=== PATIENT | male | born 1950 | race Caucasian/White ===

== ENCOUNTER → 2016-11-17 | Outpatient (CLI) | payer OTHER ==
--- NOTE | 2016-11-17 13:36 | DIAGNOSTIC IMAGING REPORT ---
LEFT RIBS UNILATERAL WITH PA CHEST CLINICAL HISTORY: LEFT RIB PAIN pain COMPARISON STUDY: None FINDINGS: Negative study left ribs. Severe degenerative change left shoulder. No acute bony abnormality. No evidence of pneumothorax. IMPRESSION: 1. Negative left ribs. 2. Severe degenerative change left shoulder. 3. Negative chest Electronically signed by: Luis Alaniz M.D. 11/17/2016 1:34 PM
== END | disposition home or self-care (01) ==
LOC: C.RADPV 13:04
PROVIDERS: ATTEND Family Medicine
DX: R07.81 Pleurodynia (principal)

== ENCOUNTER 2019-05-01 17:49 | Inpatient (IN) ==
[2019-05-01] MEDS ORDERED: dilTIAZem HCl 5 MG/ML 5 ML VIAL IV STA ×2 (17:58→18:14)
[2019-05-01] MEDS ORDERED: dilTIAZem HCl 5 MG/ML 5 ML VIAL IV ONE (17:58)
[2019-05-01] MEDS ORDERED: SODIUM CHLORIDE 0.9% 1000ML 1,000 ML IV SCH (18:00)
[2019-05-01 18:07] LABS: Basophils # (auto) 0.04 K/uL (0-0.2); Basophils % (auto) 0.4 %; Eosinophils # (auto) 0.42 K/uL (0-0.5); Eosinophils % (auto) 4.4 %; Hematocrit (blood only) 42.7 % (42-52); Hemoglobin 14.8 g/dL (14.0-18.0); Immature Granulocytes # (auto) 0.01 K/uL (0.00-0.02); Immature Granulocytes % (auto) 0.1 %; Lymphocytes % (auto) 30.2 %; Mean Corpuscular Hgb Conc 34.7 g/dL (32-36); Mean Corpuscular Volume 93.2 fL (80-100); Mean Platelet Volume 9.8 fL (7.4-10.4); Monocytes # (auto) 0.83 K/uL (0.11-0.59); Monocytes % (auto) 8.7 %; Neutrophils # (auto) 5.39 K/uL (1.4-6.5); Neutrophils % (auto) 56.2 %; Platelet Count 286 K/uL (130-400); RDW Coefficient of Variation 12.9 % (11.5-14.5); RDW Standard Deviation 43.9 fL (36.4-46.3); Red Blood Count 4.58 M/uL (4.7-6.1); White Blood Count 9.59 K/uL (4.8-10.8)
[2019-05-01] MEDS ORDERED: dilTIAZem HCl 125 MG in DEXTROSE 5% 100 ML IV STA (18:13)
[2019-05-01 18:24] LABS: Albumin Level 3.4 gm/dl (3.4-5.0); BUN Creatinine Ratio 18.4 (10-20); Calcium 9.6 mg/dl (8.5-10.1); Creatinine Clr Calc Pharmacy 84.5 ml/min; Est GFR (African American) 89.2; Magnesium 2.5 mg/dl (1.8-2.4); Potassium 4.2 mmol/L (3.5-5.1)
[2019-05-01 18:35] LABS: Albumin Globulin Ratio 0.9 (0.9-2); Bilirubin,Total 0.3 mg/dl (0.2-1); Globulin 3.8 gm/dl (2.5-4.0); Total Protein 7.2 gm/dl (6.4-8.2)
--- NOTE | 2019-05-01 18:44 | XRay Report ---
XR chest 1V portable CLINICAL HISTORY: sob dyspnea COMPARISON STUDY: 11/17/2016 FINDINGS: The bones soft tissues and hemidiaphragms are normal. The cardiomediastinal silhouette is n ormal. The lungs are clear. The pulmonary vasculature is normal. IMPRESSION: Negative chest. The above report was generated using voice recognition software. It may contain grammatical, syntax or spelling errors. Electronically signed by: Luis Alaniz M.D. 05/01/2019 6:43 PM
[2019-05-01 19:10] LABS: Lyme Ab IgG w/WB Rflx Negative (Negative); Lyme Ab IgM w/WB Rflx Negative (Negative)
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
--- NOTE | 2019-05-01 20:34 | Emergency Department Note ---
Entered by Harjit Jimenez acting as a scribe for Derrick Hoff MD History of Present Illness General Chief complaint: Arrhythmia/Palpitations Time Seen by Provider: 05/01/19 17:49 Source: patient History of Present Illness Onset (ago): day(s) 2 Location: chest (heart) Pain Consistency: + other (persistent) Quality: + other (palpitations) Associated symptoms: + shortness of breath; no chest pain, no fever/chills, no headaches and no nausea/vomiting The patient is a 68 year old male who presents to the Emergency Room with complaints of persistent palpitations over at least 2 days. The patient was evaluated at his PCPs office and was found to have atrial a flutter with RVR, and he was sent to the ER. The patient reports that he feels like his heart is racing. He states that his symptoms are persistent but not constant. He notes that he is also somewhat short of breath with exertion. He denies chest pain, fevers, lightheadedness, nausea, vomiting, leg swelling/pain, headaches, joint pain, history of any heart problems, history of thyroid issues, or other medical problems. He states that he was evaluated 3 weeks ago for a tick bite and placed on a 7-day course of antibiotics. He denies having any symptoms consistent with Lyme but has a history of Lyme which was treated several years ago. Home Medications Home Medications Medication Instructions Recorded Confirmed Type aspirin 325 mg PO ONCE 05/01/19 05/01/19 History Allergies Allergy/AdvReac Type Severity Reaction Status Date / Time pollen extracts Allergy Intermediate SNEEZING, Verified 05/01/19 18:14 CONGESTION Past Med/Surg History Medical History Lyme disease Family History Other Family history non-contributory Social History Preferred Language: Gibraltarian Feels Safe at Home: Yes Smoking Status: Current some day smoker Review of Systems See HPI for pertinent positives & negatives. and A total of 10 systems reviewed and were otherwise negative Physical Exam Vital Signs Vital Signs - 24 hr 05/01/19 17:51 05/01/19 17:56 05/01/19 17:58 Temperature 36.7 C Temperature Source Oral Sepsis Recent Fever Within 48 Hours No Sepsis New/Unexplained Change in Mental Status No Sepsis Action Taken by Nursing No Action Required Pulse Rate 145 H 143 H Pulse Rate [Apical] Pulse Rate from SpO2 Sensor 142 H Pulse Rhythm Regular Pulse Rhythm [Apical] Pulse Strength Normal Pulse Strength [Apical] Respiratory Rate 16 Respiratory Effort / Characteristics Non-Labored Spontaneous Respiratory Depth Normal Respiratory Pattern Regular Blood Pressure 130/104 H 130/104 H Blood Pressure [Right Arm] Blood Pressure Mean 112 112 Blood Pressure Mean [Right Arm] Blood Pressure Position Sitting Blood Pressure Position [Right Arm] Pulse Oximetry 99 100 97 Oxygen Delivery Method Room Air Room Air 05/01/19 18:03 05/01/19 18:10 05/01/19 18:11 Temperature Temperature Source Sepsis Recent Fever Within 48 Hours Sepsis New/Unexplained Change in Mental Status Sepsis Action Taken by Nursing Pulse Rate 142 H 142 H 140 H Pulse Rate [Apical] Pulse Rate from SpO2 Sensor 142 H 141 H 141 H Pulse Rhythm Pulse Rhythm [Apical] Pulse Strength Pulse Strength [Apical] Respiratory Rate 15 17 12 Respiratory Effort / Characteristics Respiratory Depth Respiratory Pattern Blood Pressure 121/89 Blood Pressure [Right Arm] Blood Pressure Mean 99 Blood Pressure Mean [Right Arm] Blood Pressure Position Blood Pressure Position [Right Arm] Pulse Oximetry 100 100 100 Oxygen Delivery Method 05/01/19 18:20 05/01/19 18:30 05/01/19 18:31 Temperature Temperature Source Sepsis Recent Fever Within 48 Hours Sepsis New/Unexplained Change in Mental Status Sepsis Action Taken by Nursing Pulse Rate 140 H 140 H 140 H Pulse Rate [Apical] Pulse Rate from SpO2 Sensor 140 H 137 H 138 H Pulse Rhythm Pulse Rhythm [Apical] Pulse Strength Pulse Strength [Apical] Respiratory Rate 16 20 11 L Respiratory Effort / Characteristics Respiratory Depth Respiratory Pattern Blood Pressure 122/82 Blood Pressure [Right Arm] Blood Pressure Mean 95 Blood Pressure Mean [Right Arm] Blood Pressure Position Blood Pressure Position [Right Arm] Pulse Oximetry 98 98 99 Oxygen Delivery Method 05/01/19 18:40 05/01/19 18:45 05/01/19 18:50 Temperature Temperature Source Sepsis Recent Fever Within 48 Hours Sepsis New/Unexplained Change in Mental Status Sepsis Action Taken by Nursing Pulse Rate 140 H 142 H 143 H Pulse Rate [Apical] 140 H Pulse Rate from SpO2 Sensor 125 H 129 H 90 Pulse Rhythm Pulse Rhythm [Apical] Regular Pulse Strength Pulse Strength [Apical] Normal Respiratory Rate 24 13 10 L Respiratory Effort / Characteristics Non-Labored Spontaneous Respiratory Depth Normal Respiratory Pattern Regular Blood Pressure 112/88 Blood Pressure [Right Arm] 122/82 Blood Pressure Mean 96 Blood Pressure Mean [Right Arm] 95 Blood Pressure Position Blood Pressure Position [Right Arm] Sitting Pulse Oximetry 98 99 99 Oxygen Delivery Method Room Air 05/01/19 19:00 05/01/19 19:01 05/01/19 19:10 Temperature Temperature Source Sepsis Recent Fever Within 48 Hours Sepsis New/Unexplained Change in Mental Status Sepsis Action Taken by Nursing Pulse Rate 144 H 145 H 145 H Pulse Rate [Apical] Pulse Rate from SpO2 Sensor 82 93 H 126 H Pulse Rhythm Pulse Rhythm [Apical] Pulse Strength Pulse Strength [Apical] Respiratory Rate 15 11 L 24 Respiratory Effort / Characteristics Respiratory Depth Respiratory Pattern Blood Pressure 106/84 Blood Pressure [Right Arm] Blood Pressure Mean 91 Blood Pressure Mean [Right Arm] Blood Pressure Position Blood Pressure Position [Right Arm] Pulse Oximetry 96 98 94 Oxygen Delivery Method 05/01/19 19:15 05/01/19 19:20 05/01/19 19:22 Temperature Temperature Source Sepsis Recent Fever Within 48 Hours Sepsis New/Unexplained Change in Mental Status Sepsis Action Taken by Nursing Pulse Rate 144 H 146 H 146 H Pulse Rate [Apical] Pulse Rate from SpO2 Sensor 102 H 81 79 Pulse Rhythm Pulse Rhythm [Apical] Pulse Strength Pulse Strength [Apical] Respiratory Rate 5 L 8 L 10 L Respiratory Effort / Characteristics Respiratory Depth Respiratory Pattern Blood Pressure 109/96 108/85 Blood Pressure [Right Arm] Blood Pressure Mean 100 92 Blood Pressure Mean [Right Arm] Blood Pressure Position Blood Pressure Position [Right Arm] Pulse Oximetry 96 97 97 Oxygen Delivery Method 05/01/19 19:35 05/01/19 19:45 Temperature Temperature Source Sepsis Recent Fever Within 48 Hours Sepsis New/Unexplained Change in Mental Status Sepsis Action Taken by Nursing Pulse Rate 143 H 144 H Pulse Rate [Apical] Pulse Rate from SpO2 Sensor 127 H 88 Pulse Rhythm Pulse Rhythm [Apical] Pulse Strength Pulse Strength [Apical] Respiratory Rate 13 14 Respiratory Effort / Characteristics Respiratory Depth Respiratory Pattern Blood Pressure 122/83 111/79 Blood Pressure [Right Arm] Blood Pressure Mean 96 89 Blood Pressure Mean [Right Arm] Blood Pressure Position Blood Pressure Position [Right Arm] Pulse Oximetry 97 97 Oxygen Delivery Method Room Air Room Air Constitutional: Vital signs reviewed. Eyes: Pupils are equal round reactive to light. Conjunctiva are noninjected. ENT: Pharynx is clear without erythema or exudate. Mucous membranes are moist. Neck supple without meningeal signs. Respiratory: Clear to auscultation bilaterally. Breath sounds are equal bilaterally. Cardiovascular: Tachycardic rate at 145 bpm. Regular rhythm. No rubs or gallops. GI: Soft, nondistended and nontender. Bowel sounds are present. Musculoskeletal: No peripheral edema. No lower extremity tenderness. Integumentary: No cyanosis. Neurological: The patient is awake and alert. No focal deficits. Psychiatric: Normal affect. Course 175: The patient was evaluated in room B2. A complete history and physical examination were performed. 1812: I checked on the patient. He states that he may have had is symptoms for up to a week but is unsure, although he states that it has been at least 2 days. His heart rate is currently 142 bpm. He will be started on a Cardizem drip and will be given a repeat bolus. 183: Cardizem drip and bolus have been given. His heart rate is 139 now. He states that he doesnt take any magnesium supplements. 1847: The patient is not experiencing any current symptoms. His heart rate is still in the 140s on the Cardizem drip. His blood pressure is stable. 191: The patients blood pressure is still 142 bpm. 1950: Dr. Diego [facility] Hospitalist is evaluating the patient for hospitalization . Administered Medications Diltiazem HCl 125 mg/ Dextrose 125 mls @ 10 mls/hr IV .[id number] STA; Protocol Stop: 05/02/19 06:42 Last Titration: 05/01/19 19:23 Dose: 15 mg/hr, 15 mls/hr Documented by: [id number] Admin: 05/01/19 18:24 Dose: 10 mg/hr, 10 mls/hr Documented by: [id number] Cosigned by: [id number] Discontinued Medications Diltiazem HCl (Cardizem) Confirm Administered Dose 25 mg IV .STK-MED ONE Stop: 05/01/19 17:59 Last Admin: 05/01/19 18:00 Dose: Not Given Documented by: [id number] Diltiazem HCl (Cardizem) 10 mg IV NOW STA Stop: 05/01/19 17:59 Last Admin: 05/01/19 18:00 Dose: 10 mg Documented by: [id number] Cosigned by: [id number] Diltiazem HCl (Cardizem) 10 mg IV NOW STA Stop: 05/01/19 18:15 Last Admin: 05/01/19 18:24 Dose: 10 mg Documented by: [id number] Cosigned by: [id number] Sodium Chloride (Nss 1000ml) 1,000 mls @ 999 mls/hr IV .[id number] MELLISA Stop: 05/01/19 19:00 Last Infusion: 05/01/19 19:20 Dose: 0 mls/hr Documented by: [id number] Admin: 05/01/19 18:00 Dose: 999 mls/hr Documented by: [id number] Medical Decision Making Differential Diagnosis Differential diagnosis: electrolyte abnormalities, atrial flutter, metabolic derangement, HI, hyperthyroidism Medical Records Attestation: I reviewed the patient's medical records. I did perform a limited focused review of portions of the patient's old chart on the electronic medical record. The patient was seen prior to arrival in his PCPs office for palpitations and shortness of breath. He was found to have a heart rate of 147 bpm and was sent here by ambulance. Home Medications Current Medication List: was personally reviewed by me Laboratory Data Attestation: I reviewed the patient's lab results. Result diagrams: 05/01/19 17:55 05/01/19 17:55 Lab Results 05/01/19 05/01/19 05/01/19 Range/Units 17:55 17:55 17:55 WBC 9.59 (4.8-10.8) K/uL RBC 4.58 L (4.7-6.1) M/uL Hgb 14.8 (14.0-18.0) g/dL Hct 42.7 (42-52) % MCV 93.2 (80-100) fL MCH 32.3 (25-34) pg MCHC 34.7 (32-36) g/dL RDW Std Deviation 43.9 (36.4-46.3) fL RDW Coeff of [place] 12.9 (11.5-14.5) % Plt Count 286 (130-400) K/uL MPV 9.8 (7.4-10.4) fL Immature Gran % (Auto) 0.1 % Neut % (Auto) 56.2 % Lymph % (Auto) 30.2 % [place] % (Auto) 8.7 % Eos % (Auto) 4.4 % Baso % (Auto) 0.4 % Immature Gran # (Auto) 0.01 (0.00-0.02) K/uL Neut # (Auto) 5.39 (1.4-6.5) K/uL Lymph # (Auto) 2.90 (1.2-3.4) K/uL [place] # (Auto) 0.83 H (0.11-0.59) K/uL Eos # (Auto) 0.42 (0-0.5) K/uL Baso # (Auto) 0.04 (0-0.2) K/uL Sodium 141 (136-145) mmol/L Potassium 4.2 (3.5-5.1) mmol/L Chloride 107 (98-107) mmol/L Carbon Dioxide 28 (21-32) mmol/L Anion Gap 6.0 (3-11) BUN 18 (7-18) mg/dl Creatinine 1.00 (0.6-1.4) mg/dl Est Cr Clr Drug Dosing 84.5 ml/min Est GFR ( Amer) 89.2 Est GFR (Non-Af Amer) 77.0 BUN/Creatinine Ratio 18.4 (10-20) Glucose 87 (70-99) mg/dl Calcium 9.6 (8.5-10.1) mg/dl Magnesium 2.5 H (1.8-2.4) mg/dl Total Bilirubin 0.3 (0.2-1) mg/dl AST 18 (15-37) U/L ALT 27 (12-78) U/L Alkaline Phosphatase 108 (45-117) U/L POC Troponin I (0-0.045) ng/ml Total Protein 7.2 (6.4-8.2) gm/dl Albumin 3.4 (3.4-5.0) gm/dl Globulin 3.8 (2.5-4.0) gm/dl Albumin/Globulin Ratio 0.9 (0.9-2) TSH 2.650 (0.300-4.500) uIu/ml Lyme Disease IgG Ab Negative (Negative) Lyme Disease IgM Ab Negative (Negative) 05/01/19 Range/Units 18:00 WBC (4.8-10.8) K/uL RBC (4.7-6.1) M/uL Hgb (14.0-18.0) g/dL Hct (42-52) % MCV (80-100) fL MCH (25-34) pg MCHC (32-36) g/dL RDW Std Deviation (36.4-46.3) fL RDW Coeff of Marina (11.5-14.5) % Plt Count (130-400) K/uL MPV (7.4-10.4) fL Immature Gran % (Auto) % Neut % (Auto) % Lymph % (Auto) % [place] % (Auto) % Eos % (Auto) % Baso % (Auto) % Immature Gran # (Auto) (0.00-0.02) K/uL Neut # (Auto) (1.4-6.5) K/uL Lymph # (Auto) (1.2-3.4) K/uL [place] # (Auto) (0.11-0.59) K/uL Eos # (Auto) (0-0.5) K/uL Baso # (Auto) (0-0.2) K/uL Sodium (136-145) mmol/L Potassium (3.5-5.1) mmol/L Chloride (98-107) mmol/L Carbon Dioxide (21-32) mmol/L Anion Gap (3-11) BUN (7-18) mg/dl Creatinine (0.6-1.4) mg/dl Est Cr Clr Drug Dosing ml/min Est GFR ( Amer) Est GFR (Non-Af Amer) BUN/Creatinine Ratio (10-20) Glucose (70-99) mg/dl Calcium (8.5-10.1) mg/dl Magnesium (1.8-2.4) mg/dl Total Bilirubin (0.2-1) mg/dl AST (15-37) U/L ALT (12-78) U/L Alkaline Phosphatase (45-117) U/L POC Troponin I < 0.03 (0-0.045) ng/ml Total Protein (6.4-8.2) gm/dl Albumin (3.4-5.0) gm/dl Globulin (2.5-4.0) gm/dl Albumin/Globulin Ratio (0.9-2) TSH (0.300-4.500) uIu/ml Lyme Disease IgG Ab (Negative) Lyme Disease IgM Ab (Negative) Imaging Data Radiologist's Impression: Radiology results as stated below per my review and the radiologist's interpretation: XR chest 1V portable CLINICAL HISTORY: sob dyspnea COMPARISON STUDY: 11/17/2016 FINDINGS: The bones soft tissues and hemidiaphragms are normal. The cardiomediastinal silhouette is normal. The lungs are clear. The pulmonary vasculature is normal. IMPRESSION: Negative chest. The above report was generated using voice recognition software. It may contain grammatical, syntax or spelling errors. Electronically signed by: Luis Alaniz M.D. 05/01/2019 6:43 PM ECG Data Attestation: I personally reviewed and interpreted this ECG as follows: Indication: palpitations Rate (beats per minute): 146 Rhythm: atrial flutter Findings: + other (2:1 conduction) and + nonspecific-ST abn; no PVC Blood Pressure Blood Pressure Findings: Normal blood pressure Blood Pressure Disposition: did not require urgent referral MDM Narrative I did provide prehospital medical command for the patient. I did evaluate the patient as noted above. The patient is presenting with new onset atrial flutter with RVR. He does complain of some shortness of breath. The patient was placed on a continuous pvc monitor. I did order and personally review the patient's 12-lead EKG as described above. He has a flutter with 2-1 conduction and rapid genicular response. I did order and personally reviewed the images of the patient's chest x-ray as described above. Chest x-ray is unremarkable. I did order and review the patient's blood work as noted in the electronic medical record. His magnesium is slightly elevated. He denies magnesium supplementation. His labs are otherwise unremarkable. I did treat the patient with normal saline IV. He was also given boluses of Cardizem IV and placed on a continuous drip. I did reassess the patient multiple times. His heart rate did improve but remained elevated. I did recommend hospitalization and discussed case with the hospitalist and case management coordinator. Impression & Plan Atrial flutter with rapid ventricular response, New onset atrial flutter, Hypermagnesemia Critical Care Time Critical Care Time: Yes Total Critical Care Time: 35 I have personally spent 35 minutes of critical care time in the direct management of this patient. This includes bedside care, interpretation of diagnostic studies, and testing, discussion with consultants, patient, and family members, and other required patient management activities. This 35 minutes is in excess of all separately billable procedures. Discharge Plan Visit Data Chief Complaint: Arrhythmia/Palpitations ED Provider: Derrick Hoff Discharge Problem: Atrial flutter with rapid ventricular response, New onset atrial flutter, Hypermagnesemia Patient Disposition: Admitted As Inpatient Discharge Instructions Interventions: ED Discharge Assessment Last Done: 05/01/19 20:13 The kevenibe's documentation has been prepared under my direction and personally reviewed by me in its entirety. I confirm that the note above accurately reflects all work, treatment, procedures, and medical decision making performed by me.
[2019-05-01] MEDS ORDERED: dilTIAZem HCl 125 MG in DEXTROSE 5% 100 ML IV SCH (20:37)
[2019-05-01] MEDS ORDERED: ALUMINUM/MAGNESIUM SUSP 30 ML UDC PO PRN (20:37)
[2019-05-01] MEDS ORDERED: ONDANSETRON INJ 2 MG/ML 2 ML VIAL IV PRN (20:37)
[2019-05-01] MEDS ORDERED: MAGNESIUM HYDROXIDE SUSP 30 ML UDC PO PRN (20:37)
[2019-05-01] MEDS ORDERED: ACETAMINOPHEN 325 MG TAB PO PRN (20:37)
[2019-05-01] MEDS ORDERED: ZOLPIDEM TARTRATE 5 MG TAB PO PRN (20:37)
[2019-05-01] MEDS ORDERED: POLYETHYLENE (MIRALAX) 17 GM PACK PO PRN (20:37)
[2019-05-01 21:34] LABS: Partial Thromboplastin Time 26.1 Seconds (21.0-31.0); Prothrombin Time 10.5 Seconds (9.0-12.0)
[2019-05-01] MEDS ORDERED: D5W AND LACTATED RINGERS 1,000 ML IV SCH (22:59)
[2019-05-02] MEDS ORDERED: SODIUM CHLORIDE 0.9% 1000ML 500 ML IV ONE (00:06)
[2019-05-02] MEDS ORDERED: DIGOXIN 125 MCG in SYRINGE 9.5 ML IV STA (00:53)
[2019-05-02] MEDS: ENOXAPARIN 100 MG/1ML SYR SQ SCH ×3 (01:04→20:58)
[2019-05-02] MEDS: dilTIAZem HCl 125 MG in DEXTROSE 5% 100 ML IV SCH ×3 (03:27→17:52)
[2019-05-02] MEDS ORDERED: METOPROLOL TARTRATE 1 MG/ML VIAL IV STA (03:58)
[2019-05-02] MEDS ORDERED: METOPROLOL TARTRATE 1 MG/ML VIAL IV ONE (04:00)
[2019-05-02] MEDS: ASPIRIN 81 MG ECTAB PO SCH (07:42)
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
--- NOTE | 2019-05-02 11:55 | Hospitalist Progress Note ---
Date of Service May 02, 2019 Assessment & Plan (1) Atrial flutter: This pt is an active 68 y/o M without a significant medical history, presenting with a diagnosis of atrial flutter from his GP's office. He had short of breath with exertion for three days prior to his doctor visit. His wi fe also reports listening to his heart and noting that it seemed to be fast and irregular. He denies any CP. He did not discern any palpitations. Atrial flutter with a rate of 140 was confirmed on arrival to the ER. Initial labs were unremarkable. With tachy-sunny syndrome, usually sinus bradycardia in the past Remains in Aflutter with not much rate control on dilt gtt but BPs stable. -plan for ALY tomorrow to confirm no clot and then EP with ablation on -continue tele monitoring -continue Lovenox therapeutic dosing and then hold the AM of the EPS -continue dilt gtt and Cardio added po metoprolol today The pt's [id number] is 1. Will likely only need Eliquis x 1 month after his ablation and if no recurrence of Aflutter, will likely discontinue Eliquis after that -possiblity of needing a pacer in the future as per Cardio -Appreciate Cardio consultation -can eat today and then NPO after midnight tonight -follow lytes, CBC -f/u ECHO results when available Proph-Lovenox Dispo-remain on PCU Subjective Feels palpitations but otherwise feels fine. No lightheadedness, no CP or SOB. Making urine. I shungry. Discussed case with Cardiology Tele with Aflutter with rates variable from 90s-140s, with multiple 3-5 second pauses/blocks Review of Systems Review of Systems: All systems reviewed & are unremarkable except as noted in HPI & below Physical Exam Constitutional: WD/WN, vitals as above Eyes: PERRL, conjunctivae normal, anicteric sclerae ENMT: external ear and nose normal, oropharynx normal Neck: trachea midline, no thyromegaly Respiratory: normal respiratory effort, lungs clear to auscultation Cardiovascular: Rate/Rhythm: + tachycardic and + irregularly irregular Heart Sounds: no murmur Extremities: no calf tenderness and no edema Gastrointestinal (Abdomen): normal bowel sounds, soft, nontender, no hepatosplenomegaly Musculoskeletal: Extremities: extremities normal to inspection; no cyanosis and no clubbing Skin: no rashes, warm and dry Neurologic: moves all extremities and awake; no focal motor deficits Psychiatric: A+Ox3, euthymic affect Results & Data Vital Signs (Past 12 Hours) Vital Signs Temp Pulse Pulse Pulse Resp BP Pulse Ox 05/02/19 11:33 36.4 C L 68 18 98/65 L 97 05/02/19 08:00 136 H 05/02/19 07:23 36.6 C 57 L 18 96/65 L 95 05/02/19 05:32 128 H 05/02/19 04:44 116 H 05/02/19 04:43 136 H 05/02/19 02:56 36.5 C 138 H 19 99/70 L 95 05/02/19 01:30 129 H 05/02/19 01:05 95/48 L 05/02/19 01:04 140 H Laboratory Results 05/02/19 05/01/19 05/01/19 Range/Units 05:15 18:00 17:55 WBC (4.8-10.8) K/uL RBC (4.7-6.1) M/uL Hgb (14.0-18.0) g/dL Hct (42-52) % MCV (80-100) fL MCH (25-34) pg MCHC (32-36) g/dL RDW Std Deviation (36.4-46.3) fL RDW Coeff of Marina (11.5-14.5) % Plt Count (130-400) K/uL MPV (7.4-10.4) fL Immature Gran % (Auto) % Neut % (Auto) % Lymph % (Auto) % [facility] % (Auto) % Eos % (Auto) % Baso % (Auto) % Immature Gran # (Auto) (0.00-0.02) K/uL Neut # (Auto) (1.4-6.5) K/uL Lymph # (Auto) (1.2-3.4) K/uL [facility] # (Auto) (0.11-0.59) K/uL Eos # (Auto) (0-0.5) K/uL Baso # (Auto) (0-0.2) K/uL PT 10.5 (9.0-12.0) Seconds INR 1.0 (0.9-1.1) APTT 26.1 (21.0-31.0) Seconds PTT Ratio 1.0 Sodium (136-145) mmol/L Potassium (3.5-5.1) mmol/L Chloride (98-107) mmol/L Carbon Dioxide (21-32) mmol/L Anion Gap (3-11) BUN (7-18) mg/dl Creatinine (0.6-1.4) mg/dl Est Cr Clr Drug Dosing ml/min Est GFR ( Amer) Est GFR (Non-Af Amer) BUN/Creatinine Ratio (10-20) Glucose (70-99) mg/dl Calcium (8.5-10.1) mg/dl Magnesium (1.8-2.4) mg/dl Total Bilirubin (0.2-1) mg/dl AST (15-37) U/L ALT (12-78) U/L Alkaline Phosphatase (45-117) U/L POC Troponin I < 0.03 (0-0.045) ng/ml Total Protein (6.4-8.2) gm/dl Albumin (3.4-5.0) gm/dl Globulin (2.5-4.0) gm/dl Albumin/Globulin Ratio (0.9-2) TSH (0.300-4.500) uIu/ml Lyme Disease IgG Ab (Negative) Lyme Disease IgM Ab (Negative) Hepatitis C Ab Screen Neg (Neg) 05/01/19 05/01/19 05/01/19 Range/Units 17:55 17:55 17:55 WBC 9.59 (4.8-10.8) K/uL RBC 4.58 L (4.7-6.1) M/uL Hgb 14.8 (14.0-18.0) g/dL Hct 42.7 (42-52) % MCV 93.2 (80-100) fL MCH 32.3 (25-34) pg MCHC 34.7 (32-36) g/dL RDW Std Deviation 43.9 (36.4-46.3) fL RDW Coeff of Marina 12.9 (11.5-14.5) % Plt Count 286 (130-400) K/uL MPV 9.8 (7.4-10.4) fL Immature Gran % (Auto) 0.1 % Neut % (Auto) 56.2 % Lymph % (Auto) 30.2 % [facility] % (Auto) 8.7 % Eos % (Auto) 4.4 % Baso % (Auto) 0.4 % Immature Gran # (Auto) 0.01 (0.00-0.02) K/uL Neut # (Auto) 5.39 (1.4-6.5) K/uL Lymph # (Auto) 2.90 (1.2-3.4) K/uL [facility] # (Auto) 0.83 H (0.11-0.59) K/uL Eos # (Auto) 0.42 (0-0.5) K/uL Baso # (Auto) 0.04 (0-0.2) K/uL PT (9.0-12.0) Seconds INR (0.9-1.1) APTT (21.0-31.0) Seconds PTT Ratio Sodium 141 (136-145) mmol/L Potassium 4.2 (3.5-5.1) mmol/L Chloride 107 (98-107) mmol/L Carbon Dioxide 28 (21-32) mmol/L Anion Gap 6.0 (3-11) BUN 18 (7-18) mg/dl Creatinine 1.00 (0.6-1.4) mg/dl Est Cr Clr Drug Dosing 84.5 ml/min Est GFR ( Amer) 89.2 Est GFR (Non-Af Amer) 77.0 BUN/Creatinine Ratio 18.4 (10-20) Glucose 87 (70-99) mg/dl Calcium 9.6 (8.5-10.1) mg/dl Magnesium 2.5 H (1.8-2.4) mg/dl Total Bilirubin 0.3 (0.2-1) mg/dl AST 18 (15-37) U/L ALT 27 (12-78) U/L Alkaline Phosphatase 108 (45-117) U/L POC Troponin I (0-0.045) ng/ml Total Protein 7.2 (6.4-8.2) gm/dl Albumin 3.4 (3.4-5.0) gm/dl Globulin 3.8 (2.5-4.0) gm/dl Albumin/Globulin Ratio 0.9 (0.9-2) TSH 2.650 (0.300-4.500) uIu/ml Lyme Disease IgG Ab Negative (Negative) Lyme Disease IgM Ab Negative (Negative) Hepatitis C Ab Screen (Neg) PG Care Time/CCT Total # of Minutes Spent Total Time Spent with Patient: Total time spent is greater than 50% in coordination of care (as documented) at patient's floor/unit and/or counseling patient:
[2019-05-02] MEDS: METOPROLOL TARTRATE 25 MG TAB PO SCH ×2 (13:17→20:58)
--- NOTE | 2019-05-02 19:04 | Cardiology Consultation ---
Date of Consultation May 02, 2019 Assessment & Plan (1) Atrial flutter with rapid ventricular response: The patient has what appears to be a typical isthmus dependent right atrial flutter. This is perhaps related to his history of sleep apnea. He is known to have an element of ectopy at baseline and in the setting of bradycardia, ectopy and perhaps some changes and right atrial anatomy he has developed atrial flutter. It does not appear to be any other proximate cause for his arrhythmia. The duration of the flutter is unknown. He may have had it longer than even a few days. He began to have symptoms recently which may have coincided with reduced LV function as discovered on echocardiography. I agree with the treatment plan outlined by Xavier Levine PA-C. I think we can perform a transesophageal echocardiogram tomorrow in the absence of left atrial appendage thrombus proceed with catheter based therapy for what appears to be a typical right atrial flutter. It is unclear if he is having any real benefit from the diltiazem or metoprolol. He seems to be tolerating the high rates well despite poor LV function. It will be reasonable discontinue this medication in order to avoid hypotension or significant pauses. (2) Tachy-sunny syndrome: He has long history of fairly significant bradycardia. However, this is sinus bradycardia and he has not had symptoms associated with low heart rates. In fact, he is a very active individual. I do not think he would do well with a rate control strategy for atrial flutter. He is already having some pauses on telemetry while in atrial flutter. I think catheter based therapy is the safest option as we could treat any form of bradycardia subsequent to conversion while he is in the lab. I do not suspect he will need a pacemaker in the immediate term as prior to developing the arrhythmia did not appear to be symptomatic. History of Present Illness Reason for Consultation: Atrial flutter Requesting Physician: Abner Attending Physician: Gabrielle Pearson MD History of Present Illness The patient is 60-year-old gentleman without a known history of cardiac disease who was recently diagnosed with atrial flutter. It seems that the patient had a vague sense of a higher heart rate for several days but was noticed by his girlfriend to have a rapid pulse upon as occult a greer. Patient was not feeling poorly at the time but over the next couple of days did start to experience some exercise intolerance and dyspnea with exertion. Based on the symptoms and a persistently high heart rate he was evaluated in the emergency room and had evidence of atrial flutter and associated high ventricular rates. He did not report any orthopnea at nighttime. He has not noticed any lower extremity edema. He did not report any associated chest pain with this arrhythmia. He has not had dizziness or lightheadedness. He cannot recall suffering syncopal episode. Prior to these events the patient is a very active individual. He did not report any limiting symptoms associated with activity. He has not had exertional chest pain or dyspnea. He reportedly has a diagnosis of sleep apnea. Allergies Allergy/AdvReac Type Severity Reaction Status Date / Time pollen extracts Allergy Intermediate SNEEZING, Verified 05/01/19 18:14 CONGESTION Home Medications Home Medications Medication Instructions Recorded Confirmed Type aspirin 325 mg PO ONCE 05/01/19 05/01/19 History Patient History Medical History Lyme disease Family History Other Family history non-contributory Social History Preferred Language: Slovak Communication Ability: Effective Beliefs That Will Affect Care: None Current Living Situation: Alone Feels Safe at Home: Yes Smoking Status: Never smoker Second Hand Exposure: No Hx Alcohol Use: No Hx Substance Use: No Review of Systems Review of Systems: All systems reviewed & are unremarkable except as noted in HPI & below Physical Exam Physical Exam: The patient is alert and oriented. Mood and affect appeared normal. He answered all questions appropriately. HEENT: Pupils are equal and reactive to light and accommodation. Extraocular movements are intact. The sclerae are anicteric. Neuro: Cranial nerves intact Neck: Patient's neck is supple. He has palpable carotid pulses bilaterally without bruits on auscultation. There is no evidence of jugular venous distention. The thyroid is not enlarged. Lungs: Clear to auscultation bilaterally. He has good air movement without use of accessory muscles. No rales wheezes or rhonchi. Cardiac: Heart demonstrates a irregular rhythm and tachycardia Normal S1 and S2. No murmurs on examination. Pulses: The patient has palpable radial pulses bilaterally that are equal in intensity Extremities: There was no evidence of hypoperfusion. There is no cyanosis or clubbing. There is no edema. Skin: I did not appreciate any rashes on examination today. Results & Data Vital Signs (Past 12 Hours) Vital Signs Temp Pulse Pulse Resp BP Pulse Ox 05/02/19 16:00 98 H 05/02/19 15:52 36.6 C 75 17 96/54 L 95 05/02/19 12:00 136 H 05/02/19 11:33 36.4 C L 68 18 98/65 L 97 05/02/19 08:00 136 H 05/02/19 07:23 36.6 C 57 L 18 96/65 L 95 Laboratory Results Abnormal Lab Results 05/01/19 05/01/19 05/02/19 17:55 17:55 05:15 PT 10.5 INR 1.0 APTT 26.1 PTT Ratio 1.0 Lyme Disease IgG Ab Negative Lyme Disease IgM Ab Negative Hepatitis C Ab Screen Neg Diagnostic Findings Chest x-ray obtained the time admission not reveal any acute cardiopulmonary findings. Echocardiogram performed today reveals severely reduced LV systolic function with global hypokinesis. No significant valvular heart disease. ECG Additional Comments: Atrial flutter and rapid ventricular response
[2019-05-03] MEDS: dilTIAZem HCl 125 MG in DEXTROSE 5% 100 ML IV SCH (03:20)
[2019-05-03 05:52] LABS: Basophils # (auto) 0.05 K/uL (0-0.2); Basophils % (auto) 0.6 %; Eosinophils # (auto) 0.33 K/uL (0-0.5); Eosinophils % (auto) 4.2 %; Hematocrit (blood only) 41.3 % (42-52); Hemoglobin 14.3 g/dL (14.0-18.0); Immature Granulocytes # (auto) 0.01 K/uL (0.00-0.02); Immature Granulocytes % (auto) 0.1 %; Lymphocytes # (auto) 1.95 K/uL (1.2-3.4); Lymphocytes % (auto) 24.7 %; Mean Corpuscular Hgb Conc 34.6 g/dL (32-36); Mean Corpuscular Volume 91.8 fL (80-100); Mean Platelet Volume 10.1 fL (7.4-10.4); Monocytes # (auto) 0.62 K/uL (0.11-0.59); Monocytes % (auto) 7.8 %; Neutrophils # (auto) 4.94 K/uL (1.4-6.5); Neutrophils % (auto) 62.6 %; Platelet Count 264 K/uL (130-400); RDW Coefficient of Variation 13.1 % (11.5-14.5); RDW Standard Deviation 44.1 fL (36.4-46.3)
[2019-05-03 06:21] LABS: BUN Creatinine Ratio 18.8 (10-20); Calcium 9.3 mg/dl (8.5-10.1); Est GFR (African American) 93.8; Est GFR (Non-African American) 80.9; Magnesium 2.2 mg/dl (1.8-2.4); Potassium 3.9 mmol/L (3.5-5.1)
[2019-05-03] MEDS: ENOXAPARIN 100 MG/1ML SYR SQ SCH ×2 (08:16→21:01)
[2019-05-03] MEDS: ASPIRIN 81 MG ECTAB PO SCH (08:16)
--- NOTE | 2019-05-03 10:37 | Pre Anesthesia Assessment ---
Date of Service May 03, 2019 Pre Sedation Assessment Vital Signs Temp Pulse Pulse Pulse Pulse Resp BP 05/03/19 07:39 36.4 C L 68 16 05/03/19 03:12 36.4 C L 132 H 18 05/03/19 00:09 128 H 05/02/19 23:49 36.5 C 135 H 18 116/74 05/02/19 22:20 129 H 05/02/19 20:00 101 H 05/02/19 19:06 36.4 C L 141 H 17 05/02/19 16:00 98 H 05/02/19 15:52 36.6 C 75 17 05/02/19 12:00 136 H 05/02/19 11:33 36.4 C L 68 18 BP Pulse Ox 05/03/19 07:39 102/69 96 05/03/19 03:12 103/74 96 05/03/19 00:09 05/02/19 23:49 94 05/02/19 22:20 05/02/19 20:00 05/02/19 19:06 115/69 99 05/02/19 16:00 05/02/19 15:52 96/54 L 95 05/02/19 12:00 05/02/19 11:33 98/65 L 97 Cardiovascular + tachycardic Respiratory + respiratory effort normal Pre-Sedation Airway Assessment Smoking Status: Never smoker Hx Sleep Apnea: Yes Hx Difficult Intubation: No Short, Thick Neck: No Thyromental Distance: > or= 3.5 Finger Breadths Oral Cavity: + WNL Mallampati Class: III ASA: ASA3 Procedure Planning Contraindications for Sedation: none Current Medications Reviewed: Yes Notes The planned sedation has been discussed with the patient. Informed Consent was obtained. I have identified the patient, determined the appropriateness of sedation and have assessed the patient immediately prior to the procedure. All medicine(s) and interventions are by my order.
[2019-05-03] MEDS ORDERED: BENZOCAIN/TETRACA/BUTAM SPRAY 200 APPLN/20 GM SPRY EXT ONE (12:03)
[2019-05-03] MEDS ORDERED: fentaNYL citrate 100 MCG/2 ML VIAL ONE (12:03)
[2019-05-03] MEDS ORDERED: CANNULA ONE (12:04)
[2019-05-03] MEDS ORDERED: MIDAZOLAM HCL 1 MG/ML 2ML VIAL ONE (12:04)
--- NOTE | 2019-05-03 19:04 | Cardiology Progress Note ---
Date of Service May 03, 2019 Assessment & Plan (1) Atrial flutter with rapid ventricular response: He seems to be tolerating the arrhythmia well. Heart rates remained high but he has few symptoms. Our intent is to perform catheter based therapy tomorrow for a QR. 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 (3) Cardiomyopathy: He was noted on echocardiogram yesterday to have reduced LV systolic function. Most likely this is tachycardia mediated. Leading up to his admission he did not have symptoms of angina and overall has been very active individual. My hope is that with a return to normal sinus rhythm we can see improvement in his LV function over time. Subjective Shin a patient claims feeling well. He is ambulatory around the bauman without significant dyspnea, lightheadedness or chest discomfort. Review of Systems Review of Systems: Per HPI Physical Exam Physical Exam: The patient is alert and oriented. Mood and affect appeared normal. He answered all questions appropriately. HEENT: Pupils are equal and reactive to light and accommodation. Extraocular movements are intact. The sclerae are anicteric. Neuro: Cranial nerves intact Lungs: Clear to auscultation bilaterally. He has good air movement without use of accessory muscles. No rales wheezes or rhonchi. Cardiac: Heart demonstrates an irregular rate and rhythm. Normal S1 and S2. No murmurs on examination. Pulses: The patient has palpable radial pulses bilaterally that are equal in intensity Extremities: There was no evidence of hypoperfusion. There is no cyanosis or clubbing. There is no edema. Skin: I did not appreciate any rashes on examination today. Results & Data Vital Signs (Past 12 Hours) Vital Signs Temp Pulse Pulse Pulse Resp BP Pulse Ox 05/03/19 15:53 36.6 C 130 H 19 116/74 97 05/03/19 12:34 138 H 16 122/89 97 05/03/19 12:04 128 H 16 113/76 97 05/03/19 11:45 36.3 C L 136 H 16 109/79 96 05/03/19 11:34 134 H 16 115/68 95 05/03/19 11:24 136 H 16 106/70 95 05/03/19 11:14 134 H 16 104/64 98 05/03/19 11:04 134 H 133 H 16 106/86 94 05/03/19 10:59 132 H 16 106/86 98 05/03/19 10:54 133 H 16 133/81 100 05/03/19 10:50 36.4 C L 135 H 16 138/81 96 05/03/19 07:39 36.4 C L 68 16 102/69 96 Laboratory Results Abnormal Lab Results 05/03/19 05/03/19 05:22 05:22 WBC 7.90 RBC 4.50 L Hgb 14.3 Hct 41.3 L MCV 91.8 MCH 31.8 MCHC 34.6 RDW Std Deviation 44.1 RDW Coeff of Marina 13.1 Plt Count 264 MPV 10.1 Immature Gran % (Auto) 0.1 Neut % (Auto) 62.6 Lymph % (Auto) 24.7 [place] % (Auto) 7.8 Eos % (Auto) 4.2 Baso % (Auto) 0.6 Immature Gran # (Auto) 0.01 Neut # (Auto) 4.94 Lymph # (Auto) 1.95 [place] # (Auto) 0.62 H Eos # (Auto) 0.33 Baso # (Auto) 0.05 Sodium 142 Potassium 3.9 Chloride 111 H Carbon Dioxide 26 Anion Gap 5.0 BUN 18 Creatinine 0.96 Est Cr Clr Drug Dosing 88.0 Est GFR ( Amer) 93.8 Est GFR (Non-Af Amer) 80.9 BUN/Creatinine Ratio 18.8 Glucose 101 H Calcium 9.3 Magnesium 2.2 Diagnostic Findings Transesophageal echocardiogram performed today which did not reveal any evidence of left atrial thrombus
--- NOTE | 2019-05-03 21:56 | Hospitalist Progress Note ---
Date of Service May 03, 2019 Assessment & Plan (1) Atrial flutter: This pt is an active 68 y/o M without a significant medical history, presenting with a diagnosis of atrial flutter from his GP's office. He had SOB with exertion for three days prior to his doctor visit. His also reports listening to his heart and noting that it seemed to be fast and irregular. He denies any CP. He did not discern any palpitations. Atrial flutter with a rate of 140 was confirmed on arrival to the ER. Initial labs were unremarkable. With tachy-sunny syndrome, usually sinus bradycardia in the past Remains in Aflutter with not much rate control on dilt gtt and actually had significant pauses that were consistent with heart block for up to 5 seconds on multiple occasions Pauses have now resolved after discontinuing diltiazem and metoprolol ALY performed on 05/03 without left atrial appendage thrombus Both transthoracic and transesophageal echocardiograms with moderately reduced LV function likely due to tachyarrhythmia -Plan for EPS with ablation on -continue tele monitoring -continue Lovenox therapeutic dosing but hold the dose for tomorrow morning -Appreciate cardiology consultation -Continue to follow electrolytes and replace as needed -The pt's [id number] is 1. Will likely only need Eliquis x 1 month after his ablation and if no recurrence of Aflutter, will likely discontinue Eliquis after that -Continue aspirin for now (2) Cardiomyopathy: With moderately reduced LV function likely secondary to tachyarrhythmia -Hopeful that with ablation of atrial flutter, his LV function will return to normal over time -He will need close follow-up with outpatient cardiology with repeat echocardiogram (3) Tachy-sunny syndrome: As above (4) Systolic CHF: As above with LVEF 30-35% and global LV hypokinesis, also with moderately reduced RV systolic function -No evidence of volume overload at this time -No need for diuretics -Will discuss with cardiology about need to place him on Toprol and FRANTZ inhibitor prior to discharge (5) Witnessed apneic spells: Given long history of witnessed apnea and snoring and the association of AJITH with atrial fib/flutter, will check overnight pulse oximetry and provide with supplemental nocturnal O2 if sleep study is positive (6) DVT prophylaxis: Lovenox therapeutic dosing SQ Disposition-remain on PCU and possible discharge to home in the next 1 to 2 days after flutter ablation Subjective Patient denies any shortness of breath or chest pain. Denies nausea. He is still in atrial flutter with rates in the 130s to 140s, no further heart block or pauses. Patient reports a long history of witnessed apnea and snoring. He never had a sleep study as an outpatient but was recommended to by his PCP. Review of Systems Review of Systems: All systems reviewed & are unremarkable except as noted in HPI & below Physical Exam Constitutional: WD/WN, vitals as above Eyes: PERRL, conjunctivae normal, anicteric sclerae ENMT: external ear and nose normal, oropharynx normal Neck: trachea midline, no thyromegaly Respiratory: normal respiratory effort, lungs clear to auscultation Cardiovascular: Rate/Rhythm: + tachycardic and + irregularly irregular Heart Sounds: no murmur Extremities: no calf tenderness and no edema Gastrointestinal (Abdomen): normal bowel sounds, soft, nontender, no hepatosplenomegaly Musculoskeletal: Extremities: extremities normal to inspection; no cyanosis and no clubbing Skin: no rashes, warm and dry Neurologic: moves all extremities and awake; no focal motor deficits Psychiatric: A+Ox3, euthymic affect Results & Data Vital Signs (Past 12 Hours) Vital Signs Temp Pulse Pulse Pulse Resp BP Pulse Ox 05/03/19 21:00 36.7 C 138 H 17 110/70 95 05/03/19 19:28 135 H 05/03/19 15:53 36.6 C 130 H 19 116/74 97 05/03/19 12:34 138 H 16 122/89 97 05/03/19 12:04 128 H 16 113/76 97 05/03/19 11:45 36.3 C L 136 H 16 109/79 96 05/03/19 11:34 134 H 16 115/68 95 05/03/19 11:24 136 H 16 106/70 95 05/03/19 11:14 134 H 16 104/64 98 05/03/19 11:04 134 H 133 H 16 106/86 94 05/03/19 10:59 132 H 16 106/86 98 05/03/19 10:54 133 H 16 133/81 100 05/03/19 10:50 36.4 C L 135 H 16 138/81 96 Laboratory Results 05/03/19 05/03/19 Range/Units 05:22 05:22 WBC 7.90 (4.8-10.8) K/uL RBC 4.50 L (4.7-6.1) M/uL Hgb 14.3 (14.0-18.0) g/dL Hct 41.3 L (42-52) % MCV 91.8 (80-100) fL MCH 31.8 (25-34) pg MCHC 34.6 (32-36) g/dL RDW Std Deviation 44.1 (36.4-46.3) fL RDW Coeff of Marina 13.1 (11.5-14.5) % Plt Count 264 (130-400) K/uL MPV 10.1 (7.4-10.4) fL Immature Gran % (Auto) 0.1 % Neut % (Auto) 62.6 % Lymph % (Auto) 24.7 % [place] % (Auto) 7.8 % Eos % (Auto) 4.2 % Baso % (Auto) 0.6 % Immature Gran # (Auto) 0.01 (0.00-0.02) K/uL Neut # (Auto) 4.94 (1.4-6.5) K/uL Lymph # (Auto) 1.95 (1.2-3.4) K/uL [place] # (Auto) 0.62 H (0.11-0.59) K/uL Eos # (Auto) 0.33 (0-0.5) K/uL Baso # (Auto) 0.05 (0-0.2) K/uL Sodium 142 (136-145) mmol/L Potassium 3.9 (3.5-5.1) mmol/L Chloride 111 H (98-107) mmol/L Carbon Dioxide 26 (21-32) mmol/L Anion Gap 5.0 (3-11) BUN 18 (7-18) mg/dl Creatinine 0.96 (0.6-1.4) mg/dl Est Cr Clr Drug Dosing 88.0 ml/min Est GFR ( Amer) 93.8 Est GFR (Non-Af Amer) 80.9 BUN/Creatinine Ratio 18.8 (10-20) Glucose 101 H (70-99) mg/dl Calcium 9.3 (8.5-10.1) mg/dl Magnesium 2.2 (1.8-2.4) mg/dl Diagnostic Findings ALY with moderately reduced LV function, no LA thrombus noted PG Care Time/CCT Total # of Minutes Spent Total Time Spent with Patient: Total time spent is greater than 50% in coordination of care (as documented) at patient's floor/unit and/or counseling patient:
[2019-05-04 06:33] LABS: Hematocrit (blood only) 42.1 % (42-52); Hemoglobin 14.5 g/dL (14.0-18.0); Mean Corpuscular Hgb Conc 34.4 g/dL (32-36); Mean Corpuscular Volume 93.3 fL (80-100); Mean Platelet Volume 10.3 fL (7.4-10.4); Platelet Count 279 K/uL (130-400); RDW Standard Deviation 44.3 fL (36.4-46.3); Red Blood Count 4.51 M/uL (4.7-6.1); White Blood Count 9.55 K/uL (4.8-10.8)
[2019-05-04 07:02] LABS: BUN Creatinine Ratio 21.1 (10-20); Creatinine Clr Calc Pharmacy 90.9 ml/min; Est GFR (African American) 97.4; Est GFR (Non-African American) 84.1; Magnesium 2.1 mg/dl (1.8-2.4); Potassium 3.9 mmol/L (3.5-5.1)
[2019-05-04] MEDS: ASPIRIN 81 MG ECTAB PO SCH (09:24)
--- NOTE | 2019-05-04 10:02 | Pre Anesthesia Assessment ---
Date of Service May 04, 2019 Pre Sedation Assessment Vital Signs Temp Pulse Pulse Pulse Resp BP Pulse Ox 05/04/19 07:31 36.7 C 139 H 18 108/72 98 05/04/19 06:45 137 H 05/04/19 03:51 36.8 C 137 H 20 108/74 96 05/03/19 23:48 142 H 05/03/19 23:25 36.5 C 139 H 20 115/85 97 05/03/19 21:00 36.7 C 138 H 17 110/70 95 05/03/19 19:28 135 H 05/03/19 15:53 36.6 C 130 H 19 116/74 97 05/03/19 12:34 138 H 16 122/89 97 05/03/19 12:04 128 H 16 113/76 97 05/03/19 11:45 36.3 C L 136 H 16 109/79 96 05/03/19 11:34 134 H 16 115/68 95 05/03/19 11:24 136 H 16 106/70 95 05/03/19 11:14 134 H 16 104/64 98 05/03/19 11:04 134 H 133 H 16 106/86 94 05/03/19 10:59 132 H 16 106/86 98 05/03/19 10:54 133 H 16 133/81 100 05/03/19 10:50 36.4 C L 135 H 16 138/81 96 Cardiovascular + tachycardic Respiratory + respiratory effort normal Pre-Sedation Airway Assessment Smoking Status: Never smoker Hx Sleep Apnea: Yes Hx Difficult Intubation: No Short, Thick Neck: No Thyromental Distance: > or= 3.5 Finger Breadths Oral Cavity: + Dentures Mallampati Class: I ASA: ASA3 NPO Status Date of Last Intake of Fluids: 05/02/19 Time of Last Intake of Fluids: 18:00 Date of Last Intake of Solid Food: 05/02/19 Time of Last Intake of Solid Foods: 18:00 Procedure Planning Contraindications for Sedation: none Current Medications Reviewed: Yes Notes The planned sedation has been discussed with the patient. Informed Consent was obtained. I have identified the patient, determined the appropriateness of sedation and have assessed the patient immediately prior to the procedure. All medicine(s) and interventions are by my order.
[2019-05-04] MEDS ORDERED: fentaNYL citrate 100 MCG/2 ML VIAL ONE (10:24)
[2019-05-04] MEDS ORDERED: MIDAZOLAM HCL 5 MG/ML 1 ML VIAL ONE (10:24)
[2019-05-04] MEDS ORDERED: HEPARIN SOD (PORCINE) 1000 UNIT/ML 10 ML VIAL ONE (10:51)
[2019-05-04] MEDS ORDERED: ATROPINE SULFATE 0.1 MG/ML 10ML SYR IV ONE (11:22)
[2019-05-04] MEDS ORDERED: DOPamine 400MG / 250ML D5W IV ONE (11:23)
[2019-05-04] MEDS ORDERED: ONDANSETRON INJ 2 MG/ML 2 ML VIAL ONE (11:28)
[2019-05-04] MEDS ORDERED: NOREPINEPHRINE BITARTRATE 1 MG/ML 4 ML VIAL IV ONE (11:29)
[2019-05-04] MEDS ORDERED: PHENYLEPHRINE HCL 10 MG/ML VIAL ONE ×2 (12:46→12:49)
--- NOTE | 2019-05-04 13:18 | Post Operative Brief Note ---
Cardiology Brief Post Op Date of Surgery May 04, 2019 Pre & Post Diagnosis Operation Date: 05/03/19 11:00 <No data on this case meets the specified criteria> Operation Date: 05/04/19 10:00 <No data on this case meets the specified criteria> Procedure Relation of typical right-sided isthmus dependent atrial flutter Coronary angiography Left heart catheterization Right heart catheterization Patient presented to the EP lab in rapid atrial flutter. Electro anatomical mapping was performed which revealed typical counter-clockwise isthmus dependent right atrial flutter. A radiofrequency ablation catheter was used to terminate the atrial flutter. Immediately upon termination the patient became markedly hypotensive, diaphoretic and pale. Patient was treated with atropine and epinephrine and a dopamine infusion was started. The patient's symptoms stabilized but he maintained a level of hypotension. Emergent echocardiogram revealed preserved LV systolic function and the absence of any pericardial effusion. Right heart catheterization was then performed which revealed relatively normal wedge pressure and pulmonary pressure. The patient has infusion was switched from dopamine to norepinephrine. The patient did complain briefly of chest discomfort, arm discomfort and jaw pain. An EKG was obtained continuously throughout today's procedure and did demonstrate some ST segment changes that were relatively nonspecific. Based on the nature of his symptoms and persistent hypotension right femoral arterial access was then obtained and coronary angiography performed. This did not reveal any significant obstructive coronary disease. Left ventricular filling pressures were essentially normal. The patient was maintained on a norepinephrine infusion. Conclusions: Successful termination typical isthmus dependent right atrial flutter with return to sinus rhythm Normal coronary anatomy without obstructive coronary disease Normal left ventricular and wedge pressures Normal pulmonary pressures No evidence of pericardial effusion on echocardiography Persistent hypotension of unclear etiology Straddle Carrier Operator Reid Briscoe MD Loom Tuner none Estimated Blood Loss 10 Findings See Below
--- NOTE | 2019-05-04 14:14 | Hospitalist Progress Note ---
Date of Service May 04, 2019 Assessment & Plan (1) Atrial flutter: This pt is an active 68 y/o M without a significant medical history, presenting with a diagnosis of atrial flutter from his GP's office. He had SOB with exertion for three days prior to his doctor visit. His also reports listening to his heart and noting that it seemed to be fast and irregular. He denies any CP. He did not discern any palpitations. Atrial flutter with a rate of 140 was confirmed on arrival to the ER. Initial labs were unremarkable. With tachy-sunny syndrome, usually sinus bradycardia in the past Remained in Aflutter with not much rate control on dilt gtt and actually had significant pauses that were consistent with heart block for up to 5 seconds on multiple occasions Pauses then resolved after discontinuing diltiazem and metoprolol ALY performed on 05/03 without left atrial appendage thrombus Both transthoracic and transesophageal echocardiograms with moderately reduced LV function likely due to tachyarrhythmia Now status post EPS with ablation procedure on 05/04-had intraoperative severe hypotension and chest pain leading to urgent cardiac catheterization which showed clean coronary arteries, normal left and right-sided filling pressures, and repeat echocardiogram was without pericardial effusion and actually showed normal LV and RV function -Transferred to the ICU for vasopressor support -continue tele monitoring -Previously on Lovenox at therapeutic dosing prior to procedure-we will now start heparin drip instead -We will need to hold the heparin drip to remove the femoral artery catheter which currently is transducing with an arterial line -Appreciate cardiology consultation, production graphic designer consultation -Continue to follow electrolytes and replace as needed -The pt's [id number] is 1. Will likely only need Eliquis x 1 month after his ablation and if no recurrence of Aflutter, will likely discontinue Eliquis after that -Continue aspirin for now (2) Hypotension: As above -Continue pressors and wean off as tolerated -Checking random cortisol level -Management as per production graphic designer (3) Cardiomyopathy: With moderately reduced LV function likely secondary to tachyarrhythmia -Now status post ablation of atrial flutter, repeat echocardiogram limited showed normal LV and RV function after ablation -He will need close follow-up with outpatient cardiology (4) Tachy-sunny syndrome: As above -No need for pacemaker at this point (5) Systolic CHF: As above with LVEF 30-35% and global LV hypokinesis, also with moderately reduced RV systolic function which now seems to be resolved after ablation on repeat echocardiogram -No evidence of volume overload at this time -No need for diuretics -Will discuss with cardiology about need to place him on Toprol and FRANTZ inhibitor prior to discharge although most likely his blood pressure will not tolerate this as he runs low normally (6) Witnessed apneic spells: Given long history of witnessed apnea and snoring and the association of AJITH with atrial fib/flutter, and overnight pulse oximetry was checked -He actually has very little hypoxia overnight and does not qualify for oxygen and does not have sleep apnea (7) DVT prophylaxis: Lovenox therapeutic dosing SQ has now been changed to a heparin drip status post procedure with femoral line still in place Disposition-transferred to the ICU Subjective Patient had his electrophysiology study with ablation today and had acute onset of hypotension requiring atropine, epinephrine, dopamine infusion. He also also was having chest pain radiating to the jaw and arm which led to an urgent cardiac catheterization both right and left heart after the ablation. He had clean coronary arteries. He was transferred to the ICU and placed on norepinephrine and phenylephrine. When I saw him, he was very drowsy but had no further chest pain or jaw pain. He denied lightheadedness or nausea. Denied headache or shortness of breath. I discussed the case with cardiology and the production graphic designer. Review of Systems Review of Systems: All systems reviewed & are unremarkable except as noted in HPI & below Physical Exam Constitutional: WD/WN, vitals as above Eyes: + anicteric sclerae ENMT: external ear and nose normal, oropharynx normal Neck: trachea midline, no thyromegaly Respiratory: normal respiratory effort, lungs clear to auscultation Cardiovascular: Rate/Rhythm: regular rate and regular rhythm Heart Sounds: no murmur Extremities: no calf tenderness and no edema Right groin with dressing in place with sheaths with catheter still in place in the femoral artery and vein, no hematoma or bleeding Gastrointestinal (Abdomen): normal bowel sounds, soft, nontender, no hepatospl enomegaly Musculoskeletal: Extremities: extremities normal to inspection; no cyanosis and no clubbing Skin: no rashes, warm and dry Neurologic: moves all extremities and awake; no focal motor deficits Psychiatric: Orientation: alert (But drowsy), oriented to person, oriented to place, oriented to time and cooperative Genitourinary: no testicular masses, no penis abnormality Results & Data Vital Signs (Past 12 Hours) Vital Signs Temp Pulse Pulse Resp BP Pulse Ox 05/04/19 07:31 36.7 C 139 H 18 108/72 98 05/04/19 06:45 137 H 05/04/19 03:51 36.8 C 137 H 20 108/74 96 Laboratory Results 05/04/19 05/04/19 05/04/19 Range/Units Unknown 15:14 14:55 WBC (4.8-10.8) K/uL RBC (4.7-6.1) M/uL Hgb 13.7 L (14.0-18.0) g/dL Hct 40.1 L (42-52) % MCV (80-100) fL MCH (25-34) pg MCHC (32-36) g/dL RDW Std Deviation (36.4-46.3) fL RDW Coeff of Marina (11.5-14.5) % Plt Count (130-400) K/uL MPV (7.4-10.4) fL PT 11.1 (9.0-12.0) Seconds INR 1.1 (0.9-1.1) APTT 25.8 (21.0-31.0) Seconds PTT Ratio 1.0 Sodium (136-145) mmol/L Potassium (3.5-5.1) mmol/L Chloride (98-107) mmol/L Carbon Dioxide (21-32) mmol/L Anion Gap (3-11) BUN (7-18) mg/dl Creatinine (0.6-1.4) mg/dl Est Cr Clr Drug Dosing ml/min Est GFR ( Amer) Est GFR (Non-Af Amer) BUN/Creatinine Ratio (10-20) Glucose (70-99) mg/dl Calcium (8.5-10.1) mg/dl Magnesium (1.8-2.4) mg/dl Random Cortisol mcg/dl Nasal Screen MRSA (PCR) Negative (Negative) 05/04/19 05/04/19 05/04/19 Range/Units 14:55 05:40 05:40 WBC 9.55 (4.8-10.8) K/uL RBC 4.51 L (4.7-6.1) M/uL Hgb 14.5 (14.0-18.0) g/dL Hct 42.1 (42-52) % MCV 93.3 (80-100) fL MCH 32.2 (25-34) pg MCHC 34.4 (32-36) g/dL RDW Std Deviation 44.3 (36.4-46.3) fL RDW Coeff of Marina 13.0 (11.5-14.5) % Plt Count 279 (130-400) K/uL MPV 10.3 (7.4-10.4) fL PT (9.0-12.0) Seconds INR (0.9-1.1) APTT (21.0-31.0) Seconds PTT Ratio Sodium 141 (136-145) mmol/L Potassium 3.9 (3.5-5.1) mmol/L Chloride 110 H (98-107) mmol/L Carbon Dioxide 27 (21-32) mmol/L Anion Gap 4.0 (3-11) BUN 20 H (7-18) mg/dl Creatinine 0.93 (0.6-1.4) mg/dl Est Cr Clr Drug Dosing 90.9 ml/min Est GFR ( Amer) 97.4 Est GFR (Non-Af Amer) 84.1 BUN/Creatinine Ratio 21.1 H (10-20) Glucose 94 (70-99) mg/dl Calcium 9.0 (8.5-10.1) mg/dl Magnesium 2.1 (1.8-2.4) mg/dl Random Cortisol 14.27 mcg/dl Nasal Screen MRSA (PCR) (Negative) PG Care Time/CCT Total # of Minutes Spent Total Time Spent with Patient: Total time spent is greater than 50% in coordination of care (as documented) at patient's floor/unit and/or counseling patient:
[2019-05-04] MEDS ORDERED: HEPARIN IV BOLUS 7,000 UNITS in SYRINGE 0 ML IV ONE (15:00)
[2019-05-04] MEDS ORDERED: Heparin Adult STANDARD Wt-Based Dextrose 5% 25,000 units/500 mL IV SCH (15:00)
[2019-05-04 15:08] LABS: Hematocrit (blood only) 40.1 % (42-52); Hemoglobin 13.7 g/dL (14.0-18.0)
[2019-05-04 15:46] LABS: INR 1.1 (0.9-1.1); Partial Thromboplastin Time 25.8 Seconds (21.0-31.0); Prothrombin Time 11.1 Seconds (9.0-12.0)
[2019-05-04] MEDS ORDERED: NOREPINEPHRINE BIT INJ 8 MG in DEXTROSE 5% 500 ML IV SCH (17:00)
[2019-05-04] MEDS: PHENYLEPHRINE HCL 20 MG in DEXTROSE 5% 500 ML IV SCH (17:20)
--- NOTE | 2019-05-04 17:39 | Critical Care Consultation ---
Date of Consultation May 04, 2019 Assessment & Plan (1) Admitted to intensive care unit: Reason Critically Ill: Mr. Cardona is a 68 year old male with no significant past medical history who was admitted to [facility] due to atrial flutter. He underwent an ablation for this today and subsequently developed significant hypotension requiring the use of pressors. He was transferred to the ICU for further management. Neuro: -awake, alert, oriented x3. No neurological deficits identified Cardiac: -Atrial flutter -> s/p ablation, currently in normal sinus rhythm -> continue to monitor on telemetry -> heparin drip initiated -> will defer decision on [facility] anticoagulation to primary team -CHF -> ECHO on 05/02 (whilst in a.flutter) = 30-35% with global hypokinesis of left ventricle and moderately reduced right ventricular systolic function. Was suspected to be mediated by tachycardia. -> Repeat limited ECHO today showed normal left and right ventricular size and function -Hypotension -> pt was significantly hypotensive after ablation, requiring both levophed and phenylephrine drips to maintain BP -> pressors were both discontinued at approx 17:20, will continue to monitor BPs -> unsure of cause of initial hypotension. Right heart cath normal, coronary angio w/out evidence of significant obstructive disease Respiratory: -per review of chart - pt has history of witnessed apnea and snoring. He underwent a nocturnal pulse ox test on 05/03 which was not consistent with AJITH -patient saturating well on room air GI: -heart healthy diet ordered RENAL/LYTES: -no history of renal disease. Creatinine normal at 0.93 -no electrolyte abnormalities noted : -no cope in place ENDO: -No history of diabetes, patient has been euglycemic -TSH = 2.65 HEME: -H&H ordered q6h given patient is on a heparin drip -continue to monitor for signs/symptoms of bleeding ID: -no signs or symptoms of infection present LINES/IV ACCESS: Right femoral arterial line. Right femoral venous sheath. CODE STATUS: FULL DVT PROPHYLAXIS: on heparin drip Thank you for allowing us to participate in the care of this patient. Please refer to my attending physician's documentation for any further recommendations. (2) Atrial flutter: (3) Cardiomyopathy: (4) Tachy-sunny syndrome: (5) Systolic CHF: (6) Witnessed apneic spells: (7) Hypotension: Supervising Physician Co-Signing Physician Notes Dr. Mcdaniel was resident physician during care of patient. I separately evaluated patient for mckenzie portions of the history and the exam. I was present during the critical portion of medical decision making, and I discussed the case with the resident. I generally agree with the findings and plan. Patient requiring vasoactive medication to support his blood pressure status post procedure. Checking H&H to ensure there is not a bleed, random cortisol to evaluate for possible relative adrenal insufficiency. I have personally spent 35 minutes of critical care time in the direct management of this patient. This is a life/limb threatening event. This includes time spent evaluating patient, direct bedside care, chart review, placing orders, interpretation of diagnostic studies, discussion with consultants, patient, and/or family members regarding treatment decisions, as well as other required patient management activities. This time is exclusive of all separately billable procedures, and teaching time and separate from and in addition to any other critical care service time. History of Present Illness Reason for Consultation: Hypotension Requesting Physician: Dr. Briscoe Attending Physician: Dr. Zaman History of Present Illness Mr. Cardona is a 68 year old male with no significant past medical history who was admitted to [facility] due to atrial flutter. He reported a 3 day history of fatigue and shortness of breath on exertion before presenting to his PCP who did an EKG and noted that he had atrial flutter. He was then referred to the emergency department, where they confirmed the diagnosis of atrial flutter. He was placed on a diltiazem drip. His rates were difficult to control, and had significant pauses while on the diltiazem drip, up to 5 seconds in length. He underwent a ALY on 05/03, which did not show a left atrial appendage. He then had an ablation today (05/04), and returned to sinus rhythm. As soon as his ablation was completed, he became hypotensive, diaphoretic and pale. He was treated with atropine, epinephrine and a dopamine infusion. He underwent an emergency ECHO which showed normal LV systolic function. He then underwent a right heart catheterization which did not reveal any abnormalities in pulmonary pressures. He had complained of some chest and jaw discomfort during his procedure, and his EKG revealed nonspecific ST segment changes. He subsequently underwent a coronary angiography which did not reveal any significant ob structive coronary disease. The patient was transitioned from a dopamine drip to a norepinephrine infusion, and subsequently transferred to the ICU. At the time of my examination, Mr. Cardona was resting comfortably in his bed. He had just finished his meal and had tolerated this well. He did report some discomfort over his right groin, where they had performed the procedure, but denied any chest pain, shortness of breath, or palpitations. He did report feeling "washed out" after the procedure and states that he was very stressed during the procedure. Mr. Cardona is otherwise healthy. He is a retired. but [place], and as such, leads a very active life. He has never had trouble with chest pain or shortness of breath on exertion, palpitations or syncopal episodes. He has no prior cardiac history. He denies a history of smoking, and occasionally drinks alcohol. Allergies Allergy/AdvReac Type Severity Reaction Status Date / Time pollen extracts Allergy Intermediate SNEEZING, Verified 05/01/19 18:14 CONGESTION No Known Drug Allergies Allergy Unknown Verified 05/04/19 14:18 Home Medications Home Medications Medication Instructions Recorded Confirmed Type apixaban [Eliquis] 5 mg PO BID #60 tab 05/05/19 Rx Patient History Medical History Lyme disease Family History Other Family history non-contributory Social History Preferred Language: French Communication Ability: Effective Beliefs That Will Affect Care: None Current Living Situation: Alone Feels Safe at Home: Yes Smoking Status: Current some day smoker Second Hand Exposure: No Hx Alcohol Use: No Hx Substance Use: No Review of Systems Constitutional: + fatigue; no fever and no chills Respiratory: no cough, no dyspnea and no wheezing Cardiovascular: no chest pain, no palpitations, no lightheadedness, no syncope, no edema and no calf pain Gastrointestinal: no abdominal pain, no nausea, no vomiting and no change in bowel habits Genitourinary: no difficulty urinating, no urinary hesitancy and no urinary incontinence Physical Exam Constitutional: WD/WN, vitals as above Eyes: PERRL, conjunctivae normal, anicteric sclerae Respiratory: normal respiratory effort, lungs clear to auscultation Cardiovascular: Heart Sounds: no murmur Extremities: no calf tenderness and no edema Gastrointestinal (Abdomen): normal bowel sounds, soft, nontender, no hepatosplenomegaly Skin: no rashes, warm and dry Right femoral arterial line in place, as well as venous sheath in right femoral Neurologic: moves all extremities and awake; no focal motor deficits Psychiatric: A+Ox3, euthymic affect Results & Data Vital Signs (Past 12 Hours) Vital Signs Temp Pulse Pulse Resp BP BP Pulse Ox 05/04/19 17:20 75 23 96 05/04/19 17:16 73 24 92/63 L 96 05/04/19 17:10 78 19 97 05/04/19 17:01 78 31 H 105/64 98 05/04/19 17:00 76 16 100 05/04/19 16:50 67 7 L 97 05/04/19 16:46 69 11 L 93/60 L 97 05/04/19 16:40 64 9 L 97 05/04/19 16:31 58 L 14 95/59 L 94 05/04/19 16:30 69 10 L 96 05/04/19 16:20 70 14 99 05/04/19 16:16 69 20 102/64 99 05/04/19 16:10 75 17 99 05/04/19 16:01 72 8 L 96/70 L 100 05/04/19 16:00 71 10 L 99 05/04/19 15:50 71 15 96 05/04/19 15:46 72 108/61 99 05/04/19 15:40 74 98 05/04/19 15:30 71 14 100/61 100 05/04/19 15:20 71 19 96 05/04/19 15:15 69 10 L 94/70 L 100 05/04/19 15:10 71 14 99 05/04/19 15:01 68 22 95/68 L 97 05/04/19 15:00 71 16 98 05/04/19 14:50 72 22 98 05/04/19 14:46 74 14 103/69 96 05/04/19 14:40 71 14 97 05/04/19 14:30 73 18 113/70 95 05/04/19 14:20 72 21 94 05/04/19 14:16 71 97/70 L 96 05/04/19 14:10 73 15 98 05/04/19 14:00 75 86/64 L 97 05/04/19 13:58 72 83/57 L 98 05/04/19 13:51 78 15 75/56 L 94 05/04/19 13:50 78 96 05/04/19 13:46 79 88/58 L 93 05/04/19 13:44 78 12 05/04/19 13:43 76 05/04/19 13:42 36.5 C 74 74 20 98/70 L 88/58 L 95 05/04/19 07:31 36.7 C 139 H 18 108/72 98 05/04/19 06:45 137 H PG Care Time/CCT Critical Care Time: Yes Total Critical Care Time: 35 Resident Activity Tracking Resident Involvement: Resident Care Provided Care Provided: Adult Hospital Medicine
--- NOTE | 2019-05-04 20:01 | Cardiology Progress Note ---
Date of Service May 04, 2019 Assessment & Plan (1) Atrial flutter with rapid ventricular response: Patient underwent catheter based therapy for his atrial flutter today. The procedure itself was complicated by a market hypotension. The etiology of the hypotension was not initially clear. In order to exclude several potential complications from the procedure he did undergo both bedside echocardiography, right and left heart catheterization as well as coronary angiography. Patient w as noted to have normal pulmonary and cardiac pressures. There is no evidence of significant coronary artery disease or infarct. There is no evidence of pericardial effusion and a left ventricular ejection fraction at the time of echocardiography was normal. Right ventricle also appeared to be of normal size and function. Currently he is doing much better. His blood pressure is essentially normal without use of inotropic or pressor agents. He is feeling well. My impression is that the episode itself may have been related to profound vagal output. There is not appear to be other proximate cause at this point. Hopefully tomorrow morning we will to remove his she said have him ambulate. I think he is doing well at that time we could consider discharge. We will temporarily hold his anticoagulation to facilitate sheath removal tomorrow morning but then he will need to be anticoagulated for a few weeks afterwards either with Xarelto or Eliquis. 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 (3) Cardiomyopathy: He was noted on echocardiogram yesterday to have reduced LV systolic function. Most likely this is tachycardia mediated. Leading up to his admission he did not have symptoms of angina and overall has been very active individual. My hope is that with a return to normal sinus rhythm we can see improvement in his LV function over time. Subjective Currently patient is feeling well. He feels he was somewhat anxious during today's procedure but currently has no symptoms of chest discomfort or breathing difficulty. Review of Systems Review of Systems: Per HPI Physical Exam Physical Exam: The patient is alert and oriented. Mood and affect appeared normal. He answered all questions appropriately. HEENT: Pupils are equal and reactive to light and accommodation. Extraocular movements are intact. The sclerae are anicteric. Neuro: Cranial nerves intact Lungs: Normal respiratory effort Cardiac: Heart demonstrates a regular rate and rhythm. Normal S1 and S2. No murmurs on examination. Pulses: The patient has palpable radial pulses bilaterally that are equal in intensity Extremities: There was no evidence of hypoperfusion. There is no cyanosis or clubbing. There is no edema. Right femoral arterial and venous catheters in place. Skin: I did not appreciate any rashes on examination today. Results & Data Vital Signs (Past 12 Hours) Vital Signs Temp Pulse Pulse Resp BP BP Pulse Ox 05/04/19 17:20 75 23 96 05/04/19 17:16 73 24 92/63 L 96 05/04/19 17:10 78 19 97 05/04/19 17:01 78 31 H 105/64 98 05/04/19 17:00 76 16 100 05/04/19 16:50 67 7 L 97 05/04/19 16:46 69 11 L 93/60 L 97 05/04/19 16:40 64 9 L 97 05/04/19 16:31 58 L 14 95/59 L 94 05/04/19 16:30 69 10 L 96 05/04/19 16:20 70 14 99 05/04/19 16:16 69 20 102/64 99 05/04/19 16:10 75 17 99 05/04/19 16:01 72 8 L 96/70 L 100 05/04/19 16:00 71 10 L 99 05/04/19 15:50 71 15 96 05/04/19 15:46 72 108/61 99 05/04/19 15:40 74 98 05/04/19 15:30 71 14 100/61 100 05/04/19 15:20 71 19 96 05/04/19 15:15 69 10 L 94/70 L 100 05/04/19 15:10 71 14 99 05/04/19 15:01 68 22 95/68 L 97 05/04/19 15:00 71 16 98 05/04/19 14:50 72 22 98 05/04/19 14:46 74 14 103/69 96 05/04/19 14:40 71 14 97 05/04/19 14:30 73 18 113/70 95 05/04/19 14:20 72 21 94 05/04/19 14:16 71 97/70 L 96 05/04/19 14:10 73 15 98 05/04/19 14:00 75 86/64 L 97 05/04/19 13:58 72 83/57 L 98 05/04/19 13:51 78 15 75/56 L 94 05/04/19 13:50 78 96 05/04/19 13:46 79 88/58 L 93 05/04/19 13:44 78 12 05/04/19 13:43 76 05/04/19 13:42 36.5 C 74 74 20 98/70 L 88/58 L 95
[2019-05-04 22:24] LABS: Hematocrit (blood only) 37.2 % (42-52); Hemoglobin 12.8 g/dL (14.0-18.0)
[2019-05-04 23:00] LABS: Partial Thromboplastin Ratio 2.6
[2019-05-04 23:03] LABS: Partial Thromboplastin Time 71.2 Seconds (21.0-31.0)
[2019-05-05 05:18] LABS: Basophils # (auto) 0.05 K/uL (0-0.2); Basophils % (auto) 0.6 %; Eosinophils # (auto) 0.17 K/uL (0-0.5); Eosinophils % (auto) 1.9 %; Hematocrit (blood only) 37.2 % (42-52); Hemoglobin 12.9 g/dL (14.0-18.0); Immature Granulocytes # (auto) 0.03 K/uL (0.00-0.02); Immature Granulocytes % (auto) 0.3 %; Lymphocytes # (auto) 1.68 K/uL (1.2-3.4); Lymphocytes % (auto) 18.6 %; Mean Corpuscular Hgb Conc 34.7 g/dL (32-36); Mean Corpuscular Volume 92.5 fL (80-100); Mean Platelet Volume 9.8 fL (7.4-10.4); Monocytes % (auto) 7.8 %; Neutrophils % (auto) 70.8 %; Platelet Count 220 K/uL (130-400); RDW Coefficient of Variation 13.2 % (11.5-14.5); RDW Standard Deviation 44.6 fL (36.4-46.3); Red Blood Count 4.02 M/uL (4.7-6.1); White Blood Count 9.03 K/uL (4.8-10.8)
[2019-05-05 05:34] LABS: BUN Creatinine Ratio 19.9 (10-20); Calcium 8.4 mg/dl (8.5-10.1); Creatinine Clr Calc Pharmacy 93.6 ml/min; Est GFR (African American) 101.1; Est GFR (Non-African American) 87.2; Potassium 3.8 mmol/L (3.5-5.1)
[2019-05-05 05:38] LABS: Partial Thromboplastin Ratio 2.2
[2019-05-05 05:46] LABS: Partial Thromboplastin Time 59.2 Seconds (21.0-31.0)
[2019-05-05] MEDS: PHENYLEPHRINE HCL 20 MG in DEXTROSE 5% 500 ML IV SCH ×2 (07:12→08:10)
--- NOTE | 2019-05-05 07:48 | Critical Care Progress Note ---
Date of Service May 05, 2019 Assessment & Plan (1) Admitted to intensive care unit: Reason Critically Ill: Mr. Cardona is a 68 year old male with no significant past medical history who was admitted to [facility] due to atrial flutter. He underwent an ablation for this on 05/04 and subsequently developed significant hypotension requiring the use of pressors. He was transferred to the ICU for further management. Neuro: -awake, alert, oriented x3. No neurological deficits identified Cardiac: -Atrial flutter -> s/p ablation on 05/04, has remained in sinus rhythm since -> continue to monitor on telemetry -> primary team discussed anticoagulation w/patient and elected to begin Eliquis. We will start that tonight for long-term anticoagulation -CHF -> ECHO on 05/02 (whilst in a.flutter) = 30-35% with global hypokinesis of le ft ventricle and moderately reduced right ventricular systolic function. Was suspected to be mediated by tachycardia. -> Repeat limited ECHO on 05/04 (post ablation) showed normal left and right ventricular size and function -> follow up with cardiology in outpatient setting to monitor -Hypotension - resolved -> pt was significantly hypotensive after ablation, initially requiring both levophed and phenylephrine drips to maintain BP. -> unsure of cause of initial hypotension. Right heart cath normal, coronary angio w/out evidence of significant obstructive disease, repeat ECHO grossly normal -> patient was initially placed on a heparin drip to cover for potential PE as the cause of his hypotension - this was d/anibal this AM to facilitate removal of femoral sheath -> Random cortisol checked and WNL Respiratory: -per review of chart - pt has history of witnessed apnea and snoring. He underwent a nocturnal pulse ox test on 05/03 which was not consistent with AJITH -patient saturating well on room air GI: -heart healthy diet ordered RENAL/LYTES: -no history of renal disease. Creatinine normal at 0.89 -no electrolyte abnormalities noted : -no cope in place ENDO: -No history of diabetes, patient has been euglycemic -TSH = 2.65 HEME: -H&H stable -continue to monitor for signs/symptoms of bleeding ID: -no signs or symptoms of infection present LINES/IV ACCESS: PIV x 2 CODE STATUS: FULL DVT PROPHYLAXIS: on Eliquis Patient stable for downgrade out of ICU. Thank you for allowing us to participate in the care of this patient. Please refer to my attending physician's documentation for any further recommendations. (2) Atrial flutter: (3) Cardiomyopathy: (4) Tachy-sunny syndrome: (5) Systolic CHF: (6) Witnessed apneic spells: (7) Hypotension: Supervising Physician Co-Signing Physician Notes Dr. Mcdaniel was resident physician during care of patient. I separately evaluated patient for mckenzie portions of the history and the exam. I was present during the critical portion of medical decision making, and I discussed the case with the resident. I generally agree with the findings and plan. Patient's vasoactive requirements have resolved he remains hemodynamically stable, critical care issues have resolved, stable for downgrade out of ICU. Subjective Mr. Cardona reports he feels well today. He states that he remains with some fatigue, but has not had any more episode of chest discomfort. He denies palpitations, shortness of breath or lightheadedness. He states that removing the venous/arterial sheaths this morning was very uncomfortable and he was quite stressed about this. He is hopeful to be discharged today. Review of Systems Constitutional: + fatigue; no fever, no chills and no anorexia Respiratory: no cough and no dyspnea Cardiovascular: no chest pain, no palpitations, no lightheadedness, no syncope and no calf pain Gastrointestinal: no abdominal pain, no nausea, no vomiting and no change in bowel habits Physical Exam Constitutional: WD/WN, vitals as above Eyes: PERRL, conjunctivae normal, anicteric sclerae Respiratory: normal respiratory effort, lungs clear to auscultation Cardiovascular: Heart Sounds: no murmur Extremities: no calf tenderness and no edema Gastrointestinal (Abdomen): normal bowel sounds, soft, nontender, no hepatosplenomegaly Skin: dressing in place over right groin, clean/dry/intact Neurologic: awake; no focal motor deficits Psychiatric: A+Ox3, euthymic affect Results & Data Vital Signs (Past 12 Hours) Vital Signs Temp Pulse Resp BP Pulse Ox 05/05/19 07:35 58 L 05/05/19 06:01 58 L 11 L 105/67 94 05/05/19 06:00 59 L 8 L 94 05/05/19 05:32 60 18 94 05/05/19 05:31 59 L 16 96/61 L 94 05/05/19 05:30 60 14 94 05/05/19 05:01 58 L 13 104/70 96 05/05/19 05:00 69 16 96 05/05/19 04:30 71 21 114/71 90 05/05/19 04:01 36.4 C L 58 L 13 94/61 L 94 05/05/19 04:00 54 L 8 L 111/57 L 95 05/05/19 03:31 57 L 14 102/63 95 05/05/19 03:30 56 L 13 94 05/05/19 03:01 60 4 L 104/66 97 05/05/19 03:00 59 L 13 96 05/05/19 02:31 55 L 10 L 98/66 L 96 05/05/19 02:30 54 L 11 L 96 05/05/19 02:01 59 L 6 L 92/61 L 96 05/05/19 02:00 61 13 95 05/05/19 01:32 59 L 20 94 05/05/19 01:31 66 10 L 98/65 L 94 05/05/19 01:30 64 10 L 96 05/05/19 01:01 65 16 97/62 L 94 05/05/19 01:00 68 16 91 05/05/19 00:30 63 7 L 108/68 94 05/05/19 00:00 36.4 C L 70 17 110/69 94 05/04/19 23:31 67 17 90/62 L 94 05/04/19 23:30 68 8 L 92 05/04/19 23:00 70 12 108/62 94 05/04/19 22:30 68 8 L 95/60 L 88 L 05/04/19 22:02 66 17 96 05/04/19 22:01 64 15 94/53 L 95 05/04/19 22:00 67 11 L 95 05/04/19 21:30 65 15 96/58 L 92 05/04/19 21:01 63 13 98/61 L 95 05/04/19 21:00 64 11 L 96 05/04/19 20:31 65 22 88/57 L 95 05/04/19 20:30 54 L 14 96 05/04/19 20:01 36.4 C L 62 17 90/58 L 94 05/04/19 20:00 62 9 L 97/54 L 93 Resident Activity Tracking Resident Involvement: Resident Care Provided Care Provided: Adult Hospital Medicine
[2019-05-05 09:32] LABS: Albumin Level 2.9 gm/dl (3.4-5.0); Bilirubin Direct 0.1 mg/dl (0-0.2); Bilirubin,Total 0.5 mg/dl (0.2-1); Total Protein 6.3 gm/dl (6.4-8.2)
[2019-05-05] MEDS ORDERED: ASPIRIN 81 MG CHEW ONE (11:14)
[2019-05-05] MEDS: ASPIRIN 81 MG ECTAB PO SCH (11:16)
--- NOTE | 2019-05-05 14:00 | Cardiology Progress Note ---
Date of Service May 05, 2019 Assessment & Plan (1) Atrial flutter with rapid ventricular response: Patient underwent an ablation for typical right atrial isthmus dependent flutter yesterday. This was complicated by profound hypotension which was fairly extended in nature. However, he became normotensive couple of hours after the procedure and has been doing well since. Interestingly, he did have a vagal response when his sheaths were removed earlier this morning. He has been maintaining sinus rhythm. He does have brief runs of atrial ectopy. I suspect that some of the underlying etiology of his arrhythmia is related to sleep apnea. There is no evidence of complication at the access site in the right groin . I think he could be discharged today if he is ambulatory and feeling well. He should be maintained on systemic anticoagulation for another 4 weeks. Seems that he is interested in Eliquis that he could take a dose of Eliquis this evening. Can follow up with my colleague and Gisel Lopes and. One months time to determine if ongoing anticoagulation is necessary. Because of the arterial and venous access in the right groin, he should refrain from lifting anything over 10 pounds or heavy activity for period of 1 week. 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 (3) Cardiomyopathy: He was noted on echocardiogram yesterday to have reduced LV systolic function. Most likely this is tachycardia mediated. Leading up to his admission he did not have symptoms of angina and overall has been very active individual. My hope is that with a return to normal sinus rhythm we can see improvement in his LV function over time. Subjective This morning the patient claims to be feeling well. He was very anxious about having the venous and arterial she has pulled this morning and did report feeling poorly medially afterwards. Currently he is feeling well. He states that he has been ambulatory to the bathroom and back without symptoms. He is anxious for discharge. Review of Systems Review of Systems: Per HPI Physical Exam Physical Exam: The patient is alert and oriented. Mood and affect appeared normal. He answered all questions appropriately. HEENT: Pupils are equal and reactive to light and accommodation. Extraocular movements are intact. The sclerae are anicteric. Neuro: Cranial nerves intact Lungs: Clear to auscultation bilaterally. He has good air movement without use of accessory muscles. No rales wheezes or rhonchi. Cardiac: Heart demonstrates a regular rate and rhythm with occasional ectopy. Normal S1 and S2. No murmurs on examination. Pulses: The patient has palpable radial pulses bilaterally that are equal in intensity Extremities: There was no evidence of hypoperfusion. There is no cyanosis or clubbing. There is no edema. The right femoral access site does not have a hematoma. There is no significant ecchymosis or bleeding. No bruit on auscultation. Skin: I did not appreciate any rashes on examination today. Results & Data Vital Signs (Past 12 Hours) Vital Signs Temp Pulse Pulse Resp BP BP Pulse Ox 05/05/19 11:15 54 L 12 95/70 L 95 05/05/19 10:46 60 18 102/65 97 05/05/19 10:15 59 L 18 97/60 L 96 05/05/19 09:45 59 L 15 111/63 94 05/05/19 09:30 57 L 19 99/64 L 95 05/05/19 09:15 61 18 110/64 96 05/05/19 09:00 59 L 18 94/56 L 93 05/05/19 07:35 58 L 05/05/19 07:00 36.6 C 61 12 103/65 99 05/05/19 06:01 58 L 11 L 105/67 94 05/05/19 06:00 59 L 8 L 94 05/05/19 05:32 60 18 94 05/05/19 05:31 59 L 16 96/61 L 94 05/05/19 05:30 60 14 94 05/05/19 05:01 58 L 13 104/70 96 05/05/19 05:00 69 16 96 05/05/19 04:30 71 21 114/71 90 05/05/19 04:01 36.4 C L 58 L 13 94/61 L 94 05/05/19 04:00 54 L 8 L 111/57 L 95 05/05/19 03:31 57 L 14 102/63 95 05/05/19 03:30 56 L 13 94 05/05/19 03:01 60 4 L 104/66 97 05/05/19 03:00 59 L 13 96 05/05/19 02:31 55 L 10 L 98/66 L 96 05/05/19 02:30 54 L 11 L 96 05/05/19 02:01 59 L 6 L 92/61 L 96 05/05/19 02:00 61 13 95 Laboratory Results Abnormal Lab Results 05/04/19 05/04/19 05/04/19 14:55 14:55 15:14 WBC RBC Hgb 13.7 L Hct 40.1 L MCV MCH MCHC RDW Std Deviation RDW Coeff of Marina Plt Count MPV Immature Gran % (Auto) Neut % (Auto) Lymph % (Auto) [place] % (Auto) Eos % (Auto) Baso % (Auto) Immature Gran # (Auto) Neut # (Auto) Lymph # (Auto) [place] # (Auto) Eos # (Auto) Baso # (Auto) PT 11.1 INR 1.1 APTT 25.8 PTT Ratio 1.0 Activ Coag Time Kaolin Sodium Potassium Chloride Carbon Dioxide Anion Gap BUN Creatinine Est Cr Clr Drug Dosing Est GFR ( Amer) Est GFR (Non-Af Amer) BUN/Creatinine Ratio Glucose POC Glucose Calcium Total Bilirubin Direct Bilirubin AST ALT Alkaline Phosphatase Total Protein Albumin Random Cortisol 14.27 Nasal Screen MRSA (PCR) 05/04/19 05/04/19 05/04/19 22:12 22:15 22:15 WBC RBC Hgb 12.8 L Hct 37.2 L MCV MCH MCHC RDW Std Deviation RDW Coeff of Marina Plt Count MPV Immature Gran % (Auto) Neut % (Auto) Lymph % (Auto) [place] % (Auto) Eos % (Auto) Baso % (Auto) Immature Gran # (Auto) Neut # (Auto) Lymph # (Auto) [place] # (Auto) Eos # (Auto) Baso # (Auto) PT INR APTT 71.2 H* PTT Ratio 2.6 Activ Coag Time Kaolin Sodium Potassium Chloride Carbon Dioxide Anion Gap BUN Creatinine Est Cr Clr Drug Dosing Est GFR ( Amer) Est GFR (Non-Af Amer) BUN/Creatinine Ratio Glucose POC Glucose 102 H Calcium Total Bilirubin Direct Bilirubin AST ALT Alkaline Phosphatase Total Protein Albumin Random Cortisol Nasal Screen MRSA (PCR) 05/04/19 05/05/19 05/05/19 Unknown 05:07 05:07 WBC 9.03 RBC 4.02 L Hgb 12.9 L Hct 37.2 L MCV 92.5 MCH 32.1 MCHC 34.7 RDW Std Deviation 44.6 RDW Coeff of Marina 13.2 Plt Count 220 MPV 9.8 Immature Gran % (Auto) 0.3 Neut % (Auto) 70.8 Lymph % (Auto) 18.6 [place] % (Auto) 7.8 Eos % (Auto) 1.9 Baso % (Auto) 0.6 Immature Gran # (Auto) 0.03 H Neut # (Auto) 6.40 Lymph # (Auto) 1.68 [place] # (Auto) 0.70 H Eos # (Auto) 0.17 Baso # (Auto) 0.05 PT INR APTT 59.2 H* PTT Ratio 2.2 Activ Coag Time Kaolin Sodium Potassium Chloride Carbon Dioxide Anion Gap BUN Creatinine Est Cr Clr Drug Dosing Est GFR ( Amer) Est GFR (Non-Af Amer) BUN/Creatinine Ratio Glucose POC Glucose Calcium Total Bilirubin Direct Bilirubin AST ALT Alkaline Phosphatase Total Protein Albumin Random Cortisol Nasal Screen MRSA (PCR) Negative 05/05/19 05/05/19 05/05/19 05:07 05:07 08:09 WBC RBC Hgb Hct MCV MCH MCHC RDW Std Deviation RDW Coeff of Marina Plt Count MPV Immature Gran % (Auto) Neut % (Auto) Lymph % (Auto) [place] % (Auto) Eos % (Auto) Baso % (Auto) Immature Gran # (Auto) Neut # (Auto) Lymph # (Auto) [place] # (Auto) Eos # (Auto) Baso # (Auto) PT INR APTT PTT Ratio Activ Coag Time Kaolin 136 Sodium 139 Potassium 3.8 Chloride 110 H Carbon Dioxide 24 Anion Gap 5.0 BUN 18 Creatinine 0.89 Est Cr Clr Drug Dosing 93.6 Est GFR ( Amer) 101.1 Est GFR (Non-Af Amer) 87.2 BUN/Creatinine Ratio 19.9 Glucose 98 POC Glucose Calcium 8.4 L Total Bilirubin 0.5 Direct Bilirubin 0.1 AST 23 ALT 38 Alkaline Phosphatase 97 Total Protein 6.3 L Albumin 2.9 L Random Cortisol Nasal Screen MRSA (PCR) 05/05/19 11:09 WBC RBC Hgb Hct MCV MCH MCHC RDW Std Deviation RDW Coeff of Marina Plt Count MPV Immature Gran % (Auto) Neut % (Auto) Lymph % (Auto) [place] % (Auto) Eos % (Auto) Baso % (Auto) Immature Gran # (Auto) Neut # (Auto) Lymph # (Auto) [place] # (Auto) Eos # (Auto) Baso # (Auto) PT INR APTT PTT Ratio Activ Coag Time Kaolin Sodium Potassium Chloride Carbon Dioxide Anion Gap BUN Creatinine Est Cr Clr Drug Dosing Est GFR ( Amer) Est GFR (Non-Af Amer) BUN/Creatinine Ratio Glucose POC Glucose 89 Calcium Total Bilirubin Direct Bilirubin AST ALT Alkaline Phosphatase Total Protein Albumin Random Cortisol Nasal Screen MRSA (PCR) ECG Additional Comments: Mostly normal sinus rhythm with occasional ventricular ecto py and very brief runs of what appears to be an ectopic atrial tachycardia. No atrial flutter.
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
[2019-05-05] MEDS ORDERED: RIVAROXABAN 20 MG TAB PO SCH (16:30)
[2019-05-05] MEDS ORDERED: APIXABAN 5 MG TABLET PO SCH (21:00)
== END 2019-05-05 15:35 | disposition home or self-care (01) | DRG 274 ==
LOC: ED 17:49 → 2S 19:51 → SUATTDRO 19:51 → 2S 20:13 → 1E 05-04 14:03
PROC: CLS.TEE (2019-05-03 11:00)
DX: G47.33 Obstructive sleep apnea (adult) (pediatric); Z91.81 History of falling; I48.92 Unspecified atrial flutter; I49.5 Sick sinus syndrome; T81.10XA Postprocedural shock unspecified, initial encounter; Z79.82 Long term (current) use of aspirin; I50.20 Unspecified systolic (congestive) heart failure; I95.9 Hypotension, unspecified; I42.9 Cardiomyopathy, unspecified; R29.6 Repeated falls